=== PATIENT | male | born 1985 | race Caucasian/White ===

== ENCOUNTER → 2023-12-07 | Outpatient (CLI) | payer MEDICAID, SELFPAY ==
[2023-12-07 12:34] LABS: Hematocrit 44.1 % (40-54); Hemoglobin 14.1 g/dL (13.0-16.5); Mean Corpuscular Hgb 26.8 pg (27.0-32.0); Mean Corpuscular Volume 83.7 fL (80-94); Mean Platelet Vol. 9.8 fl (6.2-12.0); Platelet Count 244 K/mm3 (150-450); RBC Distribution Width CV 12.9 % (11.6-14.6); RBC Distribution Width SD 39.2 fl (35.1-43.9); Red Blood Count 5.27 M/mm3 (4.6-6.2); White Blood Count 6.4 K/mm3 (4.4-11.0)
[2023-12-07 12:47] LABS: Hemoglobin A1c 5.3 % (3.8-5.6)
[2023-12-07 13:16] LABS: ALB/GLOB Ratio 1.1 RATIO (0.9-2.4); AST(SGOT) 24 U/L (15-37); Alanine Aminotransfer ALT/SGPT 60 U/L (16-61); Alkaline Phosphatase 84 U/L (45-117); Anion Gap 8 (5-15); BUN 16 mg/dL (7-18); Chloride 105 mmol/L (98-107); Cholesterol 206 mg/dL (200); Creatinine, Serum 0.84 mg/dL (0.70-1.30); EST Glomerular Filtration Rate 108 mL/min (>60); Est Glom Filt Rate - Afr Amer 131 mL/min (>60); Globulin 3.6 g/dL (2.2-4.2); Glucose 92 mg/dL (74-106); High Density Lipoprotein 40 mg/dL; Potassium 4.3 mmol/L (3.5-5.1); Protein, Total 7.6 g/dL (6.4-8.2); Sodium Level 138 mmol/L (136-145); Thyroid Stim Hormone (TSH) 0.87 uIU/mL (0.358-3.74); Triglycerides 263 mg/dL; Very Low Density Lipoprotein 53 mg/dL (5-40)
[2023-12-07 13:17] LABS: HIV - WCH Non-Reactive (Nonreactive); Syphilis Antibodies Non-reactive
[2023-12-08 11:09] LABS: HEPATITIS B SURFACE AG Negative (Negative); Hep C Antibodies Non Reactive (Non Reactive); Hepatitis A IgM Antibody Negative (Negative); Hepatitis B Core AB IgM Negative (Negative)
== END | disposition home or self-care (01) ==
LOC: VSLAB 10:40
PROVIDERS: PCP Nurse Practitioner Family; Visit Provider Nurse Practitioner Family
DX: Z00.00 Encounter for general adult medical examination without abnormal findings (principal); Z72.51 High risk heterosexual behavior
CPT/HCPCS: 36415; 80053; 80061; 80074; 83036; 84443; 85027; 86703; 86780; 87491; 87591; 87661

== ENCOUNTER 2024-10-08 09:01 | Day surgery (SDC) | payer MEDICAID, SELFPAY ==
[2024-10-08] VITALS (8 sets, daily range): BP systolic 82–142; BP diastolic 46–93; PULSE 56–82; RESP 16; TEMP 36.2–36.6; O2SAT 94–99; BMI 28.6
[2024-10-08] MEDS: Lactated Ringers 1,000 ML 15 ML IV (09:44)
--- NOTE | 2024-10-08 09:53 | PCM.PRE.AN2 ---
ASA Classification* ASA Classification ASA Classification: 2 Assessment & Plan Anesthesia* Anesthesia Assessment Anesthesia Assessment: Discussed sedation and/or anesthesia options, risks, benefits, and alternatives with patient/parents/legal guardian/POA. Questions invited. The patient/parents/legal guardian/POA seems to understand and agrees to proceed with anesthesia plan. Reviewed the physical assessment, medical history, allergy history and patient home medications list prior to surgery/procedure/anesthetic and documented any changes. Performed airway and anesthesia risk assessments. Anesthesia Type Anesthesia Type: MAC History Source History Obtained from:: Patient and Chart Anesthesia Focused Assessment* Temperature: 97.8 F Pulse Rate: 62 Blood Pressure: 142/66 Respiratory Rate: 16 Pulse Ox: 99 Oxygen Delivery Method: Room Air Airway Assessment Mouth opens: >3 cm Mallampati Score: II Teeth Condition: Intact Neck Range of motion (ROM): Full ROM Focused Labs Anesthesia Preop lab: CBC WBC 6.4 K/mm3 (4.4-11.0) 12/07/23 10:41 12/07/23 RBC 5.27 M/mm3 (4.6-6.2) 12/07/23 10:41 12/07/23 Hgb 14.1 g/dL (13.0-16.5) 12/07/23 10:41 12/07/23 Hct 44.1 % (40-54) 12/07/23 10:41 12/07/23 Plt Count 244 K/mm3 (150-450) 12/07/23 10:41 12/07/23 CHEMISTRY Potassium 4.3 mmol/L (3.5-5.1) 12/07/23 10:41 12/07/23 Sodium 138 mmol/L (136-145) 12/07/23 10:41 12/07/23 BUN 16 mg/dL (7-18) 12/07/23 10:41 12/07/23 Creatinine 0.84 mg/dL (0.70-1.30) 12/07/23 10:41 12/07/23 Glucose 92 mg/dL (74-106) 12/07/23 10:41 12/07/23 TSH 0.87 uIU/mL (0.358-3.74) 12/07/23 10:41 12/07/23 COAG Pre-Assessment Diagnosis/Proposed Procedure Planned Operative Procedure(s): EGD/CSCOPE Anesthesia History 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 When Was Last Pacemaker Check QUESTION #4 FULL TEXT: You/Your Family Experience fever (hyperthermia) with Anesthesia Last Oral Intake Last Oral intake: Last Oral Intake NPO since 07:00 10/08/24 09:39 Meds taken in AM with sips of No 10/08/24 09:39 water? Meds patient instructed to take am of surgery Any additional information?: Yes NPO since: 07:00 (Patient had sips of water at 7 AM.) PONV PONV - chemical supervisor: PONV - chemical supervisor Female No 10/04/24 11:32 HX of Motion Sickness No 10/04/24 11:32 HX of N/V After Surgery No 10/04/24 11:32 Non-Smoker Yes 10/04/24 11:32 Duration of Surgery greater No 10/04/24 11:32 than 60 minutes Number of Risk Factors 1 10/04/24 11:32 PONV Score Low Risk 10/04/24 11:32 Height & Weight Height & Weight: Anesthesia: Height & Weight Height 5 ft 10 in 10/08/24 09:39 Weight: 90.5 kg 10/08/24 09:39 Body Mass Index (BMI) 28.6 10/08/24 09:39 Respiratory Assessment Respiratory Assessment - chemical supervisor: Respiratory Tract Infection Hx - chemical supervisor Hx Respiratory Tract Infection No 10/04/24 11:32 STOP Sleep Apnea STOP Sleep Apnea - chemical supervisor: STOP Sleep Apnea - chemical supervisor Hx Hypertension No 10/04/24 11:32 Hx Sleep Apnea No 10/04/24 11:32 CPAP BIPAP Do you snore loudly (louder No 10/04/24 11:32 than talking or can be heard Do you often feel tired/ No 10/04/24 11:32 fatigued/ sleepy during daytime? Has anyone observed you stop No 10/04/24 11:32 breathing during sleep? STOP Results Negative 10/04/24 11:32 QUESTION #5 FULL TEXT : Do you snore loudly (louder than talking or can be heard through closed doors)? Tobacco Use History Tobacco Use History - chemical supervisor: Tobacco Use History - chemical supervisor Tobacco Use Smoking Status Former smoker 10/04/24 11:32 Hx Tobacco Use No 10/04/24 11:32 Years Smoking Packs Smoked per Day Smoking Cessation Date was Yes - quit smoking within 15 10/04/24 11:32 within the last 15 years years Hx Smoking Cessation Date Hx Smoking Cessation No 10/04/24 11:32 Counseling Hematologic Medial History Hematologic Hx - chemical supervisor: Hematologic Medical Hx - employee relations director Hx of Blood Transfusion No 10/04/24 11:32 Hx of Transfusion in last 3 No 10/04/24 11:32 Months Date of Last Transfusion (if within last 3 months) Ever experience any problems No 10/04/24 11:32 with transfusion(s)? Specify any problems Hx of Preganancy in last 3 N/A 10/04/24 11:32 Months Nurse Filling Out Transfusion DSCHRIBER 10/04/24 11:32 & Questions: Date: 10/04/24 10/04/24 11:32 Time: 11:34 10/04/24 11:32 Patient unable to answer at this time (ie. confused, unrespo /Reproduction History /Reproductive History - chemical supervisor: /Reproductive Hx- chemical supervisor Hx Now No 10/04/24 11:32 Gestational Age (in weeks): EDC: Hx Hx Para Hx Section SAB No 10/04/24 11:32 Active Medications Active Medications: Current Medications Generic Name Dose Route Start Last Admin Trade Name Freq PRN Reason Stop Dose Admin Lactated Ringer's 1,000 mls @ 15 mls/hr 10/08/24 09:15 10/08/24 09:44 IV 15 mls/hr .Q48H SHAMIKA Administration PFSH Medical History Wears contact lenses Depression Anxiety Marijuana use Psoriasis Fatty liver Constipation Gastric reflux Asthma Former smoker Home Medications ?Medication ?Instructions ?Recorded ?Last Taken ?Type cetirizine 10 mg tablet (Allergy 10 mg PO DAILY PRN allergic 10/04/24 Unknown History Relief (cetirizine)) symptoms desvenlafaxine succinate 50 mg 50 mg PO DAILY 10/04/24 Unknown History tablet,extended release 24 hr esomeprazole magnesium 40 mg 20 mg PO DAILY 10/04/24 Unknown History capsule,delayed release trazodone 150 mg tablet 150 mg PO QHS 10/04/24 Unknown History Allergy/AdvReac Type Severity Reaction Status Date / Time No Known Allergies Allergy Verified 10/08/24 09:36 Surgical History No history of previous surgery Social History Smoking Status: Former smoker Review of Systems (Anesthesia) ROS Narrative System reviewed and no additional complaints, except as documented.
--- NOTE | 2024-10-08 10:10 | HP.PCM_ITS ---
HPI - General HPI Narrative BROOKYLN GALLEGOS, is a 39 M who presents with longstanding constipation. The patient has been going 3 to 4 days between bowel movements. The patient also has chronic GERD and would like EGD to evaluate his esophagus. He denies abdominal pain. He denies blood in the stool. [facility] History Wears contact lenses Depression Anxiety Marijuana use Psoriasis Fatty liver Constipation Gastric reflux Asthma Former smoker Home Medications ?Medication ?Instructions ?Recorded ?Last Taken ?Type cetirizine 10 mg tablet (Allergy 10 mg PO DAILY PRN al lergic 10/04/24 Unknown History Relief (cetirizine)) symptoms desvenlafaxine succinate 50 mg 50 mg PO DAILY 10/04/24 Unknown History tablet,extended release 24 hr esomeprazole magnesium 40 mg 20 mg PO DAILY 10/04/24 U nknown History capsule,delayed release trazodone 150 mg tablet 150 mg PO QHS 10/04/24 Unkno wn History Allergy/AdvReac Type Severity Reaction Status Date / Time No Known Allergies Allergy Verified 10/08/24 09:36 Surgical History No history of previous surgery Social History Smoking Status: Former smoker Past Medical/Surgical History Planned Operation Planned Operative Procedure(s): EGD/CSCOPE Previous Hospitalizations/Surgeries HX Hospitalizations: No Any Problems With Anesthesia: No (NO SURGERY HX) You/Your Family Experience Fever (Hyperthermia) With Anes: No Cholinesterase deficiency: No Cardiovascular Hx Hypertension: No Respiratory Hx Sleep Apnea: No Hx Respiratory Tract Infection/Cold (presently): No Do You Snore Loudly (louder than talking or can be heard): No Do You Often Feel Tired/ Fatigued/ Sleepy Dring Daytime?: No Has Anyone Observed You Stop Breathing During Sleep?: No Result (for STOP score): Negative Smoking Status: Former smoker Neurological Does patient have nerve stimulator: No Reproduction : No Miscellaneous Recent Exposure to Contagious Disease: No Allergies No Known Allergies Allergy (Verified 10/08/24 09:36) Discharge Is Pt Admitted From a [facility], or a Senior Living: No After D/C, Where Do you Plan to Go: Return Home Vital Signs Vital Signs Vital Signs: 10/08/24 09:39 10/08/24 09:39 10/08/24 09:58 Temperature 97.8 F 97.8 F Temperature Source Temporal Pulse Rate 62 62 Respiratory Rate 16 16 Respiratory Pattern Normal Blood Pressure 142/66 H 142/66 H Blood Pressure Mean 91 Blood Pressure Source Monitor Blood Pressure Position Sitting Blood Pressure Location Left Arm Pulse Ox 99 99 Oxygen Delivery Method Room Air Room Air Weight Weight: 199 lb 8.293 oz Body Mass Index (BMI) 28.6 Physical Exam Const alert and oriented x3 HEENT normocephalic Eyes PERRL Resp normal respiratory effort and normal air movement Cardio regular rate and regular rhythm GI soft to palpation, non-tender and non-distended Extremity normal to inspection Assessment & Plan Assessment/Plan (1) GERD (gastroesophageal reflux disease): (2) Constipation: PLAN: Plan Plan for EGD and colonoscopy to evaluate. I explained endoscopy in detail to the patient. I explained the risks including but not limited to stroke or heart attack with anesthesia, perforation of the GI tract, bleeding, infection. I explained that any of these could necessitate further emergency surgery. The patient understands and all questions were answered sufficiently. The patient wishes to proceed with procedure. Zaid Karimi MD Pager: [facility] [address] [place] [address] [address] [place] [address] Office: Surgery Risks - Colonoscopy Risks Include but are not Limited To: Risks include but are not limited to: Bleeding, perforation requiring further surgery, inability to complete colonoscopy requiring barium enema.
--- NOTE | 2024-10-08 10:44 | OP.CCLET_ITS ---
10/08/2024 Magdiel Nguyen [facility], Electrologist-c Re : Upper GI endoscopy procedure for Adrian Jim Dear Wendy This procedure was performed on Tuesday, October 08, 2024. My impressions and recommendations are as follows: Impressions : - Normal esophagus. - Normal stomach. - Normal examined duodenum. - No specimens collected. Recommendations : - Discharge patient to home. - Resume previous diet. - Continue present medications. My findings are described in the full procedure note, which is enclosed. If I can be of further assistance, please feel free to contact me at Doctor phone number(s): , Work: . Sincerely, Zaid Karimi MD 10/08/2024 10:43:55 AM This report has been signed electronically.
--- NOTE | 2024-10-08 10:44 | OP.EGD_ITS ---
Patient Name: Adrian Jim Procedure Date: 10/08/2024 10:14 AM Date of : 1985 Age: 39 Procedure: Upper GI endoscopy Indications: Gastro-esophageal reflux disease Providers: Zaid Karimi MD Referring MD: Magdiel Nguyen [facility], Gaming Dealer-c Medicines: Propofol per Anesthesia Patient Profile: This is a 39 year old male. Refer to note in patient chart for documentation of history and physical. Complications: No immediate complications. Procedure: Pre-Anesthesia Assessment: - Prior to the procedure, a History and Physical was performed, and patient medications and allergies were reviewed. The patient's tolerance of previous anesthesia was also reviewed. The risks and benefits of the procedure and the sedation options and risks were discussed with the patient. All questions were answered, and informed consent was obtained. Prior Anticoagulants: The patient has taken no anticoagulant or antiplatelet agents. After reviewing the risks and benefits, the patient was deemed in satisfactory condition to undergo the procedure. After obtaining informed consent, the endoscope was passed under direct vision. Throughout the procedure, the patient's blood pressure, pulse, and oxygen saturations were monitored continuously. The colonoscope was introduced through the mouth, and advanced to the second part of duodenum. The upper GI endoscopy was accomplished without difficulty. The patient tolerated the procedure well. Scope In: 10:22:53 AM Scope Out: 10:24:49 AM Total Procedure Duration Time 0 hours 1 minute 56 seconds Findings: The esophagus was normal. The stomach was normal. The examined duodenum was normal. Impression: - Normal esophagus. - Normal stomach. - Normal examined duodenum. - No specimens collected. Recommendation: - Discharge patient to home. - Resume previous diet. - Continue present medications. Procedure Code(s): --- Professional --- 53437, Esophagogastroduodenoscopy, flexible, transoral; diagnostic, including collection of specimen(s) by brushing or washing, when performed (separate procedure) Diagnosis Code(s): --- Professional --- K21.9, Gastro-esophageal reflux disease without esophagitis CPT copyright 2021 [employer]. All rights reserved. The codes documented in this report are preliminary and upon rheologist review may be revised to meet current compliance requirements. Zaid Karimi MD 10/08/2024 10:43:55 AM This report has been signed electronically. Number of Addenda: 0 Note Initiated On: 10/08/2024 10:14 AM
--- NOTE | 2024-10-08 10:45 | OP.COLON_ITS ---
Patient Name: Adrian Jim Procedure Date: 10/08/2024 10:24 AM Date of : 1985 Age: 39 Procedure: Colonoscopy Indications: Constipation Providers: Zaid Karimi MD Referring MD: Magdiel Nguyen [facility], Sleeping Car Conductor-c Medicines: Propofol per Anesthesia Patient Profile: This is a 39 year old male. Refer to note in patient chart for documentation of history and physical. Last Colonoscopy: none. The patient's first colonoscopy is today. Complications: No immediate complications. Procedure: Pre-Anesthesia Assessment: - Prior to the procedure, a History and Physical was performed, and patient medications and allergies were reviewed. The patient's tolerance of previous anesthesia was also reviewed. The risks and benefits of the procedure and the sedation options and risks were discussed with the patient. All questions were answered, and informed consent was obtained. Prior Anticoagulants: The patient has taken no anticoagulant or antiplatelet agents. After reviewing the risks and benefits, the patient was deemed in satisfactory condition to undergo the procedure. - Prior to the procedure, a History and Physical was performed, and patient medications and allergies were reviewed. The patient's tolerance of previous anesthesia was also reviewed. The risks and benefits of the procedure and the sedation options and risks were discussed with the patient. All questions were answered, and informed consent was obtained. Prior Anticoagulants: The patient has taken no anticoagulant or antiplatelet agents. After reviewing the risks and benefits, the patient was deemed in satisfactory condition to undergo the procedure. After I obtained informed consent, the scope was passed under direct vision. Throughout the procedure, the patient's blood pressure, pulse, and oxygen saturations were monitored continuously. The colonoscope was introduced through the anus and advanced to the cecum, identified by appendiceal orifice and ileocecal valve. The colonoscopy was performed without difficulty. The patient tolerated the procedure well. The quality of the bowel preparation was good. The ileocecal valve, appendiceal orifice, and rectum were photographed. Scope In: 10:26:25 AM Scope Withdrawal Time 0 hours 8 minutes 0 seconds Scope Out: 10:39:37 AM Total Procedure Duration Time 0 hours 13 minutes 12 seconds Findings: The entire examined colon appeared normal on direct and retroflexion views. Impression: - The entire examined colon is normal on direct and retroflexion views. - No specimens collected. Recommendation: - Discharge patient to home. - Resume previous diet. - Continue present medications. - Repeat colonoscopy at age 49 for screening purposes. Procedure Code(s): --- Professional --- 49343, Colonoscopy, flexible; diagnostic, including collection of specimen(s) by brushing or washing, when performed (separate procedure) Diagnosis Code(s): --- Professional --- K59.00, Constipation, unspecified CPT copyright 2021 [employer]. All rights reserved. The codes documented in this report are preliminary and upon belly roller review may be revised to meet current compliance requirements. Zaid Karimi MD 10/08/2024 10:45:11 AM This report has been signed electronically. Number of Addenda: 0 Note Initiated On: 10/08/2024 10:24 AM
--- NOTE | 2024-10-08 10:46 | OP.CCLET_ITS ---
10/08/2024 Magdiel Nguyen [facility], Surveyor Hydrographic-c Re : Colonoscopy procedure for Adrian Jim Dear Wendy This procedure was performed on Tuesday, October 08, 2024. My impressions and recommendations are as follows: Impressions : - The entire examined colon is normal on direct and retroflexion views. - No specimens collected. Recommendations : - Discharge patient to home. - Resume previous diet. - Continue present medications. - Repeat colonoscopy at age 49 for screening purposes. My findings are described in the full procedure note, which is enclosed. If I can be of further assistance, please feel free to contact me at Doctor phone number(s): , Work: . Sincerely, Zaid Karimi MD 10/08/2024 10:45:11 AM This report has been signed electronically.
--- NOTE | 2024-10-08 10:49 | PCM.POST.ANE ---
Anesthesia: Postop Eval I Current Vital Signs Temperature: 97.2 F Pulse Rate: 81 Blood Pressure: 82/46 Respiratory Rate: 16 Pulse Ox: 96 Oxygen Delivery Method: Room Air Assessment Airway patent: Yes Spontaneous unlabored respirations: Yes Mental status: Asleep nausea: No Vomiting: No Anesthesia Complication: No Fluid Hydration Crystalloid volume administer (ml): 200 Total IV fluid infused: 200 Progress Note Anesthesia document: Postop Eval 1 completed: Yes
--- NOTE | 2024-10-08 16:50 | PCM.POSTANE2 ---
Anesthesia Postop Eval I Sum Postop Eval Completion status Anesthesia document: Postop Eval 1 completed: Yes Anesthesia Postop Eval I Summary Anesthesia Postop Eval I Summary: Anesthesia Postop Eval I: Assessment Summary Airway patent Yes 10/08/24 10:50 [email or web address] Spontaneous unlabored Yes 10/08/24 10:50 [email or web address] respirations Mental status Asleep 10/08/24 10:50 [email or web address] nausea No 10/08/24 10:50 [email or web address] Vomiting No 10/08/24 10:50 [email or web address] Anesthesia Postop Eval I: Fluid Summary Crystalloid volume administer 200 10/08/24 10:50 [email or web address] (ml) Colloids volume administered ( ml) Blood Product volume administered (ml) Total IV fluid infused 200 10/08/24 10:50 [email or web address] Anesthesia Postop Eval I: Summary Notes Anesthesia Complication No 10/08/24 10:50 [email or web address] Anesthesia Complication Comment: Post-operative progress note Anesthesia: Postop Eval II Evaluation Mental status: Awake and Calm Pain Level: 0 nausea: No Vomiting: No Complications Anesthesia Complication: No
== END 2024-10-08 11:40 | disposition home or self-care (01) ==
LOC: EN 09:03 → AC 09:06
PROVIDERS: PCP Nurse Practitioner Family; Referring Provider Nurse Practitioner Family; Visit Provider Surgery
PROC: 0DJD8ZZ Inspection of Lower Intestinal Tract, Via Natural or Artificial Opening Endoscopic (ICD-10-PCS; CPT 45378; principal; 2024-10-08 10:10)
DX: K21.9 Gastro-esophageal reflux disease without esophagitis (principal); K59.00 Constipation, unspecified; J45.909 Unspecified asthma, uncomplicated; Z79.899 Other long term (current) drug therapy; Z87.891 Personal history of nicotine dependence
CPT/HCPCS: 43235; 45378; J2405

== ENCOUNTER → 2025-01-22 | Outpatient (CLI) | payer MEDICAID, SELFPAY ==
[2025-01-22 15:23] LABS: Color, Urine Yellow (Yellow); Glucose, Dipstick Normal (Normal); Ketone-Dipstick Negative (Negative); Leukocyte Esterase-Dipstick Negative /ul (Negative); Nitrite-Dipstick Negative (Negative); Occult Blood-Urine Negative /ul (Negative); Protein-Dipstick Negative (Negative); Specific Gravity, Urine 1.010 (1.002-1.030); Urine Bilirubin Dipstick Negative (Negative)
[2025-01-22 15:29] LABS: Hematocrit 42.3 % (40-54); Hemoglobin 14.0 g/dL (13.0-16.5); Immature Granulocytes Count 0.030 X10^3/uL (0.0-0.0); Mean Corp Hgb Conc 33.1 g/dL (32-36); Mean Corpuscular Volume 82.0 fL (80-94); Mean Platelet Vol. 9.8 fl (6.2-12.0); NRBC Flagged by Analyzer 0 % (0-5); Platelet Count 241 K/mm3 (150-450); RBC Distribution Width CV 12.3 % (11.6-14.6); RBC Distribution Width SD 37.0 fl (35.1-43.9); Red Blood Count 5.16 M/mm3 (4.6-6.2); White Blood Count 6.6 K/mm3 (4.4-11.0)
[2025-01-22 16:13] LABS: AST(SGOT) 28 U/L (<=37); Alanine Aminotransfer ALT/SGPT 42 U/L (<=46); Albumin, Serum 4.5 g/dL (3.5-5.0); Alkaline Phosphatase 72 U/L (40-129); Anion Gap 12 (5-15); BUN 17 mg/dL (4-19); BUN/Creat Ratio 12.7 RATIO (10-20); Calcium,Total 9.2 mg/dL (7.6-11.0); Carbon Dioxide 24.9 mmol/L (21.0-32.0); Chloride 101 mmol/L (98-108); Cholesterol 191 mg/dL (<=200); Globulin 2.9 g/dL (2.2-4.2); Glucose 85 mg/dL (70-99); Low Density Lipoprotein Calc. 118 mg/dL; Potassium 4.1 mmol/L (3.3-5.1); Triglycerides 212 mg/dL; Very Low Density Lipoprotein 42 mg/dL (5-40); cholesterol:hdl ratio screen 6.16
[2025-01-22 16:29] LABS: Vitamin B12 509 pg/mL (180-914); Vitamin D,25 Hydroxy 45.2 ng/mL (30-100)
== END | disposition home or self-care (01) ==
LOC: VSLAB 14:35
PROVIDERS: PCP Nurse Practitioner Family; Visit Provider Nurse Practitioner Family
DX: Z00.00 Encounter for general adult medical examination without abnormal findings (principal); L40.9 Psoriasis, unspecified
CPT/HCPCS: 80053; 80061; 81002; 82306; 82607; 83036; 84443; 85025